=== PATIENT | female | born 1975 | race Caucasian/White ===

== ENCOUNTER 2017-01-03 10:59 | Inpatient (IN) | payer OTHER ==
[~2017-01-03] VITALS: Ht 165.1 cm; Wt 54.0 kg
[2017-01-03] MEDS ORDERED: DICYCLOMINE HCL 20 MG TABLET PO PRN (11:30)
[2017-01-03] MEDS ORDERED: diphenhydrAMINE 50 MG CAPSULE PO PRN (11:30)
[2017-01-03] MEDS ORDERED: CLONIDINE HCL 0.1 MG TABLET PO PRN (11:30)
[2017-01-03] MEDS ORDERED: ONDANSETRON 4 MG/2 ML VIAL IM PRN (11:30)
[2017-01-03] MEDS ORDERED: LORAZEPAM 2 MG/1 ML VIAL IM PRN (11:30)
[2017-01-03] MEDS ORDERED: ACETAMINOPHEN 325 MG TABLET PO PRN (11:30)
[2017-01-03] MEDS ORDERED: MIRALAX 17 GM POWD.PACK PO PRN (11:30)
[2017-01-03] MEDS ORDERED: MAG HYDROX/AL HYDROX/SIMETH 30 ML LIQUID UDC PO PRN (11:30)
[2017-01-03] MEDS ORDERED: MAGNESIUM HYDROXIDE 30 ML LIQUID UDC PO PRN (11:30)
[2017-01-03] MEDS ORDERED: IBUPROFEN 400 MG TABLET PO PRN (11:30)
[2017-01-03] MEDS ORDERED: LOPERAMIDE HCL 2 MG CAPSULE PO PRN ×2 (11:30)
[2017-01-03] MEDS ORDERED: LORAZEPAM 1 MG TABLET PO PRN ×2 (11:30)
[2017-01-03] MEDS ORDERED: ONDANSETRON ODT 4 MG TAB.RAPDIS SL PRN (11:30)
--- NOTE | 2017-01-03 11:30 | NUR ---
Preadmission note Pt seen down in intake, VS are stable. Pt with family member. Pt is cleared to come up to the unit.
[2017-01-03 11:45] VITALS: BP 106/58
--- NOTE | 2017-01-03 11:45 | NUR ---
Admission note Pt arrived on unit, skin check completed, no abnormalities noted. CARAMEL CANDY MAKER showed pt around the unit, TV and call light system explained to pt. Pt was admitted for ETOH dependence. Pt states that she does not smoke cigarettes. Pt has a PMHx of bipolar d/o, insomnia and states that she was hospitalized 2 weeks ago for pancreatitis. MRSA swab ordered and sent to the lab. Pt states that she should be following a low fat diet. Pt denies any allergies to any foods or medications. Pt VS were: BP 106/58, HR 94, T: 98.3, R: 18, SpO2: 95% upon RA, denies pain. Height: 5'5'', weight 119 pounds. Pt states that her PCP is Dr Box. Pt states that she would like the pneumococcal vaccine. Pt denies SI/HI at this time, states that she has suicidal thoughts in 02/2013 but was not hospitalized. Pt states that her LMP was 3 months ago, LBM was today 01/03/17. Pt denies any history of seizures. Pt states that she takes ativan, Lamictal, trazodone and cymbalta at home as prescribed. Pt states that she was sober for 10 days, then relapsed today and drank a 12 pack of 12oz beers. Pt states that prior to this she would drink 8-24 beers a day. Pt states that she had been attending AA groups but that she has never been to detox before. Dr Kenney is aware of her admission and has placed orders. UDS is neg and urine test is negative. Will continue to monitor pt. All needs addressed at this time.
[2017-01-03 12:14] LABS: *URINE HCG, QUAL NEGATIVE (NEGATIVE)
[2017-01-03 12:18] LABS: BASOPHILS # (AUTO) 0.1 K/uL (0.0-8.0); BASOPHILS % (AUTO) 1.1 % (0.0-2.0); EOSINOPHILS # (AUTO) 0.1 K/uL (0.0-0.7); EOSINOPHILS % (AUTO) 0.9 % (0.0-7.0); HEMOGLOBIN 15.3 G/DL (12.0-16.0); LYMPHOCYTES % (AUTO) 41.9 % (20.5-51.5); MEAN CORPUSCULAR HEMOGLOBIN 32.7 UUG (27.0-31.0); MEAN CORPUSCULAR HGB CONC 34 g/dL (32.0-37.0); MEAN CORPUSCULAR VOLUME 96.1 FL (81.0-99.0); MONOCYTES # (AUTO) 0.3 K/UL (0.1-1.30); MONOCYTES % (AUTO) 4.6 % (0.0-11.0); NEUTROPHILS # (AUTO) 3.6 K/UL (1.8-8.9); NEUTROPHILS % (AUTO) 51.5 % (38.5-71.5); PLATELET COUNT (AUTO) 362 K/UL (150-450); RED BLOOD CELL COUNT(AUTO) 4.69 MIL/UL (4.2-5.4); WHITE BLOOD COUNT (AUTO) 7.1 K/UL (4.0-11.2)
[2017-01-03 12:21] LABS: *AMPHETAMINE, URINE NEGATIVE (NEGATIVE); *BARBITURATE, URINE NEGATIVE (NEGATIVE); *CANNABINOID, URINE NEGATIVE (NEGATIVE); *COCCAINE, URINE NEGATIVE (NEGATIVE); *OPIATE, URINE NEGATIVE (NEGATIVE); *PHENCYCLIDINE SCREEN,URINE NEGATIVE (NEGATIVE)
[2017-01-03] MEDS ORDERED: LAMO25TA PO (12:28)
[2017-01-03] MEDS ORDERED: TRAZ-147 PO (12:28)
[2017-01-03] MEDS ORDERED: DULO60CA63 PO (12:28)
[2017-01-03 12:38] LABS: BILIRUBIN,TOTAL 0.2 mg/dL (0.2-1.0); CREATININE 0.9 mg/dL (0.6-1.3); POTASSIUM 3.3 mmol/L (3.5-5.1); TOTAL PROTEIN, SERUM 7.2 g/dL (6.4-8.2)
--- NOTE | 2017-01-03 12:43 | NUR ---
Critical lab Pt has an ETOH % of 0.18%, Dr Kenney notified, NNO at this time. Will continue to monitor pt. PO fluids and food encouraged. Pt states that she just wants to sleep.
[2017-01-03] MEDS ORDERED: THIAMINE HCL 200 MG/2 ML VIAL IM ONE (13:00)
[2017-01-03] MEDS ORDERED: LORA-258 PO (13:28)
[2017-01-03] MEDS ORDERED: POTASSIUM CHLORIDE 20 MEQ TAB.PRT.SR PO ONE (13:45)
[2017-01-03] MEDS: DULOXETINE 60 MG CAPSULE.DR PO SCH (14:45)
--- NOTE | 2017-01-03 15:42 | NUR ---
Medication held Held nnamdi pt states that she took her dose today and that she would like to take it tomorrow.
[2017-01-03 16:00] VITALS: BP 106/73
[2017-01-03] MEDS: LAMOTRIGINE 25 MG TABLET PO SCH (17:42)
--- NOTE | 2017-01-03 19:12 | NUR ---
End of shift note Pt was admitted for observation of ETOH withdrawal. Pt has a PMHx of bipolar d/o. Pt is on PRN medication and is scheduled to discharge 01/04/17. Pt has a recent CIWA of 3. Pt states that she wants to be on a low fat diet, has NKA, and wants to be a DNR, Dr Kenney is aware and stated he will speak to pt, pt is aware. Pt states that she feels ready for discharge. Pt did not require any PRN medications during the shift, pt slept through most of the shift. Pt has no complaints at this time. Will endorse SBAR to oncoming shift. Pt drank 600ml of fluids, ate 25% of lunch and 25% of dinner, had 2 voids and no BM's during the shift.
[2017-01-03 20:00] VITALS: BP 112/76
--- NOTE | 2017-01-03 20:00 | NUR ---
1999 Patient received awake, alert and standing outside of her room # 309, requesting her dinner tray. Patient states, " I slept all day and they told me that someone would bring me a tray. Patient brought dinner tray by FORMAL WAITER/WAITRESS and patient also taken to floor kitchen for food snacks. Patient smiles and states, " Oh! This is great! I didn't know this was here, thank you!". Patient oriented to person, place, day, date, time and her personal situation. Patient's color is hunt-pink and her skin is clean, warm, dry and intact. Patient's overall appearance is a healthy-looking one. Patient denies any pain or other discomforts and she states that she will be discharged tomorrow to a rehab facility. Vital signs are: 98.6-95-16 112/76, O2 Sat 99%, CIWA 2 . Patient was admitted today for Alcohol (Beer) withdrawal and she is currently on PRN medications only for withdrawal symptoms. Patient is friendly, easily laughs, is cooperative and verbally appropriate when interacting with nurse. Gait is brisk and steady when she is out of bed. Patient is taking various fluids ad trent and she ate about 50% of her food tray this PM. Bed is locked and in lowest position, bed rails are up X 1 and call light within patient's easy reach.
[2017-01-03] MEDS ORDERED: TRAZODONE 100 MG TABLET PO SCH (21:00)
[2017-01-04] VITALS: BP 102/79
[2017-01-04 04:00] VITALS: BP 115/77
--- NOTE | 2017-01-04 06:30 | NUR ---
0630 Patient slept a total of 8.5 hours and she had 2 voids and no stools. Total intake was 1,541 ml p.o. No prn medications given this shift. V/SS afebrile, last CIWA 1 at 0400. Patient is presently sleeping comfortably with eyes closed and respirations quiet, even, unlabored at 12.
--- NOTE | 2017-01-04 07:42 | NUR ---
START OF SHIFT Received report from production supervisor off shift nurse. 41 year old female patient admitted on 01/03/17 for ETOH dependence. Pt is A/O x4. Hx of bipolar and insomnia. Pt had only been drinking for 1 day. No acute s/s of withdrawals noted. Pt is medically cleared for discharge. Pt slept for 8 1/2 hours. V/S remain WNL. Most recent CIWA is 1 at 0400. No PRN medication needed or administered at night. Pt remains compliant with treatment plan. Safety measures are in place, will continue to monitor.
[2017-01-04 08:31] VITALS: BP 117/82
[2017-01-04] MEDS: DULOXETINE 60 MG CAPSULE.DR PO SCH (08:35)
[2017-01-04] MEDS: LAMOTRIGINE 25 MG TABLET PO SCH (08:35)
[2017-01-04] MEDS ORDERED: TUBERCULIN,PURIF.PROT.DERIV. 5 TU/0.1 ML TEST ID ONE (09:00)
[2017-01-04] MEDS ORDERED: MULTIVITAMINS,THERAPEUTIC TABLET PO SCH (09:00)
[2017-01-04] MEDS ORDERED: FOLIC ACID 1 MG TABLET PO SCH (09:00)
[2017-01-04] MEDS ORDERED: PNEUMOCOCCAL 23-VAL P-SAC VAC 0.5 ML VIAL IM ONE (09:00)
[2017-01-04] MEDS ORDERED: THIAMINE HCL 100 MG TABLET PO SCH (09:00)
--- NOTE | 2017-01-04 10:13 | NUR ---
D/C NOTE Pt is A/O x4. V/S remain WNL. Pt denies SI/HI or hallucinations. Pt shows no s/s of acute withdrawal at this time, and is stable. MD has medically cleared pt for d/c. Education on Hepatitis C, smoking cessation and medication side effects provided. Pt verbalizes understanding. All pt belongings are in belonging bag, including prescriptions, and home medications. PNU vaccination received. Pt is being accompanied by NIGHT GUARD at this time to be transported to rehab. All needs met.
[2017-01-04 12:09] LABS: HEPATITIS B SURFACE AG Negative (Negative)
[2017-01-05] MEDS ORDERED: PNEUMOCOCCAL 23-VAL P-SAC VAC 0.5 ML VIAL IM ONE (09:00)
== END 2017-01-04 10:13 | disposition other institution (70) | DRG 897 ==
LOC: SRC 10:59 → EDBD 10:59 → SRC 11:53
PROVIDERS: ADMIT Internal Medicine; ATTEND Internal Medicine
PROC: HZ2ZZZZ Detoxification Services for Substance Abuse Treatment (ICD-10-PCS; principal; 2017-01-03)
DX: F10.220 Alcohol dependence with intoxication, uncomplicated (principal); Y90.6 Blood alcohol level of 120-199 mg/100 ml; F31.9 Bipolar disorder, unspecified; F41.0 Panic disorder [episodic paroxysmal anxiety]; G47.00 Insomnia, unspecified; F13.90 Sedative, hypnotic, or anxiolytic use, unspecified, uncomplicated; Z79.899 Other long term (current) drug therapy; E87.6 Hypokalemia
CPT/HCPCS: 36415; 80307; 83690; 83735; 84703; 85025; 86592; 86705; 86803; 87340; 87806; 90732; A4663; G0480; J3411